=== PATIENT | female | born 1950 | race Caucasian/White ===

== ENCOUNTER → 2016-10-24 | Outpatient (CLI) | payer OTHER ==
--- NOTE | 2016-10-25 12:53 | MAMMOGRAPHY REPORT ---
BILATERAL DIGITAL SCREENING MAMMOGRAM WITH CAD: 10/24/2016 CLINICAL HISTORY: Routine screening. Patient has no complaints. TECHNIQUE: Current study was also evaluated with a Computer Aided Detection (CAD) system. Bilatera l CC and MLO views were obtained. COMPARISON: Comparison is made to exams dated: 10/13/2015 mammogram, 09/28/2014 mammogram, 08/31/2013 m ammogram, and 08/28/2012 mammogram - [facility] [address] BREAST COMPOSITION: There are scattered areas of fibroglandular density in both breasts. FINDINGS: No suspicious masses, calcifications, or areas of architectural distortion are noted in e ither breast. There has been no significant interval change compared to prior exams. IMPRESSION: ACR BI-RADS CATEGORY 1: NEGATIVE There is no mammographic evidence of malignancy. A 1 year screening mammogram is recommended. The p atient will receive written notification of the results. Approximately 10% of breast cancers are not detected with mammography. A negative mammographic repor t should not delay biopsy if a clinically suggestive mass is present. Gabi Miles M.D. ah/:10/24/2016 15:53:35 Puppet Maker: Ashleigh ROBLES(R)(M), [facility] [address] letter sent: Normal 1/2 BI-RADS Code: ACR BI-RADS Category 1: Negative
== END | disposition home or self-care (01) ==
LOC: C.MAMM 14:20
PROVIDERS: ATTEND Physician Assistant
DX: Z12.31 Encounter for screening mammogram for malignant neoplasm of breast (principal)

== ENCOUNTER 2017-06-13 22:23 | Emergency (ER) | payer OTHER ==
[~2017-06-13] VITALS: Ht 167.6 cm; Wt 93.1 kg
[2017-06-13 22:26] VITALS: TEMP 36.3; Ht 167.6 cm; Wt 93.1 kg
--- NOTE | 2017-06-13 22:47 | EMERGENCY ROOM VISIT NOTE ---
History Report prepared by Cynthia: Dalton Nieto Under the Supervision of: Dr. Roderick Stephenson M.D. First contact with patient: 22:29 Chief Complaint: REFERRED BY DOCTOR Stated Complaint: SUSPECTED DVT - REFERRED BY DOC History of Present Illness The patient is a 66 year old female who presents to the Emergency Room with complaints of worsening right leg discomfort earlier today. She says that she has had trouble with her legs since she got back from [place] in August, and was diagnosed with sciatica, which she has been doing exercises for ever since with physical therapy. The patient states that for a while now, she has had numbness in the right leg, and currently, her right foot is completely numb. She adds that today she realized that there is shooting pain from the right knee down intermittently. The patient states that there is worsening swelling as well. She is concerned for a DVT. The patient states that she is not on any blood thinners. She denies any abdominal pain. Source of History: patient Onset: Earlier today Position: leg (right) Symptom Intensity: concern for DVT Quality: other (discomfort) Timing: worsening Associated Symptoms: + numbness (right lower extremity), No abdominal pain Note: Shooting intermittent pain down right leg. Review of Systems See HPI for pertinent positives and negatives. A total of ten systems were reviewed and were otherwise negative. Past Medical & Surgical Medical Problems: (1) Sciatica Family History No pertinent family history Social History Smoking Status: Never Smoker Marital Status: Housing Status: lives with family Occupation Status: retired Current/Historical Medications Scheduled Buspirone Hcl (Buspar), 15 MG PO TID Montelukast Sodium (Singulair), 10 MG PO DAILY Allergies Coded Allergies: Paroxetine (Unverified Adverse Reaction, Severe, EASILY BLEEDS, BLOOD WON' T CLOT, 06/13/17) Progesterone (Unverified Adverse Reaction, Severe, FLUID RETENTION, ) Physical Exam Vital Signs Date Time Temp Pulse Resp B/P (MAP) Pulse Ox O2 Delivery O2 Flow Rate FiO2 06/14/17 00:40 60 18 141/68 97 06/13/17 22:26 36.3 69 18 154/66 98 Room Air Physical Exam GENERAL: Awake, alert, well-appearing, in no distress HENT: Normocephalic, atraumatic. Oropharynx unremarkable. EYES: Normal conjunctiva. Sclera non-icteric. NECK: Supple. No nuchal rigidity. FROM. No JVD. RESPIRATORY: Clear to auscultation. CARDIAC: Regular rate, normal rhythm. Extremities warm and well perfused. Pulses equal. ABDOMEN: Soft, non-distended. No tenderness to palpation. No rebound or guarding. No masses. RECTAL: Deferred. MUSCULOSKELETAL: Chest examination reveals no tenderness. The back is symmetrical on inspection without obvious abnormality. There is no CVA tenderness to palpation. No joint edema. LOWER EXTREMITIES: Question marginally increased edema in right lower extremity , no tenderness. No discoloration. NEURO: Normal sensorium. No sensory or motor deficits noted. SKIN: No rash or jaundice noted. Medical Decision & Procedures ER Provider Diagnostic Interpretation: US: Radiology results as stated below per my review and radiologist interpretation US VENOUS RIGHT LOWER EXTREMITY: No evidence of deep venous thrombosis. Radiologist: Lori Quintanilla M.D. ED Course 2243: The patient was evaluated in room B6. A complete history and physical exam was performed. 0030: I reevaluated the patient and she is resting comfortably. Discussed results and discharge instructions: she verbalized understanding and agreement. The patient is ready for discharge. Medical Decision I reviewed the patient's past medical history, medications, and the nursing notes as described above. Differential diagnosis includes but is not limited to: musculoskeletal strain, sciatica, DVT. The patient is a 66 y/o woman who presents to the emergency department with concern for pain in her right leg with ?new swelling and was told to go to the ED by her pcp to r/o DVT per HPI. On arrival the patient is in NAD, AFVSS. On exam the patient's legs appear symmetric with ?marginally greater size of RLE and patient reports pain in the RLE. Duplex negative for DVT. Patient's symptoms are most likely 2/2 to her chronic arthritis. Able to ambulate without difficulty. Unlikely to have emergent process at this time. Findings and plan for follow-up reviewed with patient. Patient agreeable and d/c'd per discharge instructions. Medication Reconcilliation Current Medication List: was personally reviewed by me Blood Pressure Screening Patient's blood pressure: Elevated blood pressure Blood pressure disposition: Elevated BP felt to be situational Impression Primary Impression: Leg pain, right Scribe Attestation The scribe's documentation has been prepared under my direction and personally reviewed by me in its entirety. I confirm that the note above accurately reflects all work, treatment, procedures, and medical decision making performed by me. Departure Information Dispostion Home / Self-Care Referrals Munir Bradford (PCP) Patient Instructions Leg Low Back Pain Poss Causes, My [facility] [address] Additional Instructions Please follow up with your primary care physician in the next 1-3 days for re- evaluation. The cause of your symptoms is unclear at this time. Otherwise, your exam and ultrasound did not show signs of an emergent condition at this time. Return to the emergency department for worsening symptoms as described in the accompanying instructions.
[2017-06-13] MEDS ORDERED: MONT1TAB3 PO (22:51)
[2017-06-13] MEDS ORDERED: BUSP15TA70 PO (22:51)
[2017-06-14 00:40] VITALS: BP 141/68; PULSE 60; O2SAT 97
--- NOTE | 2017-06-14 05:29 | DIAGNOSTIC IMAGING REPORT ---
VENOUS DOPP LOWER EXT UNILAT CLINICAL HISTORY: RLE pain swelling pain. Edema. TECHNIQUE: Venous Doppler COMPARISON STUDY: None FINDINGS: Normal study IMPRESSION: Normal venous Doppler right leg The above report was generated using voice recognition software. It may contain grammatical, syntax or spelling errors. Electronically signed by: Sebastian Deutsch M.D. 06/14/2017 5:28 AM Dictated Date/Time: 06/14/2017 5:28 AM
== END 2017-06-14 00:40 | disposition home or self-care (01) ==
LOC: C.EDB 22:26
DX: M79.604 Pain in right leg (principal); M54.30 Sciatica, unspecified side; Z79.899 Other long term (current) drug therapy